=== PATIENT | female | born 1970 | race Caucasian/White ===

== ENCOUNTER → 2019-10-26 14:08 | Outpatient (CLI) | payer OTHER, SELFPAY ==
--- NOTE | ~2019-10-26 | CT_ITS ---
EXAMINATION: CT sinus wo con DATE: 10/26/2019 14:27 INDICATION: Chronic sinusitis TECHNIQUE: Computed tomography (CT) of the paranasal sinuses was performed without intravenous contra st. The dose-length product was 260.54 mGy-cm. Iterative reconstruction technique was employed. COMPARISON: No prior studies for comparison. FINDINGS: There is pansinusitis with air-fluid level in the left maxillary sinus. The ostiomeatal uni ts are occluded by soft tissue. There is rightward nasal septal deviation. Mastoids are pneumatized. IMPRESSION: 1. Miramontes sinusitis, likely chronic. 2: Rightward nasal septal deviation. Reviewed, dictated and finalized at location A.
== END ==
PROVIDERS: Visit Provider Allergy & Immunology
DX: J33.9 Nasal polyp, unspecified (principal); J32.4 Chronic pansinusitis; J34.2 Deviated nasal septum
CPT/HCPCS: 70486

== ENCOUNTER → 2021-09-18 15:33 | Outpatient (CLI) | payer BC, SELFPAY ==
--- NOTE | ~2021-09-18 | MM_ITS ---
EXAMINATION: MM scrn beatris implant BI w sj HISTORY: Screening mammogram TECHNIQUE: Craniocaudal and mediolateral oblique 3-D tomosynthesis images with implant displacement a nd synthetic 2-D images were generated. Craniocaudal and mediolateral oblique views of the breasts wi thout implant displacement were obtained using full field digital mammography. CAD analysis was submi tted and interpreted. COMPARISON: 09/26/2010 BREAST PARENCHYMAL COMPOSITION: The breasts are heterogeneously dense, which may obscure small masses . FINDINGS: RIGHT BREAST: There is no evidence of suspicious mass, calcification, or architectural distortion to suggest malignancy. There has been no significant interval change. LEFT BREAST: An asymmetry is present in the anterior third of the slightly outer breast on the implan t displaced craniocaudal view. IMPRESSION: 1. Left breast asymmetry. 2. Additional mammographic views and possible breast ultrasound are recommended. BI-RADS Category 0: Incomplete: Needs additional imaging evaluation. Reviewed, dictated and finalized at location A. MAKER CUSTOM IMPRESSION: 1. Left breast asymmetry. 2. Additional mammographic views and possible breast ultrasound are recommended . BI-RADS Category 0: Incomplete: Needs additional imaging evaluation.
== END ==
PROVIDERS: Visit Provider Family Medicine
DX: Z12.31 Encounter for screening mammogram for malignant neoplasm of breast (principal); R92.8 Other abnormal and inconclusive findings on diagnostic imaging of breast
CPT/HCPCS: 77063; 77067

== ENCOUNTER → 2021-10-01 09:16 | Outpatient (CLI) | payer BC, SELFPAY ==
--- NOTE | ~2021-10-01 | MM_ITS ---
EXAMINATION: MM diag beatris implant LT w sj HISTORY: Follow-up left breast asymmetry TECHNIQUE: Additional 3-D tomosynthesis images of the left breast were performed and synthetic 2-D im ages were generated. CAD analysis was submitted and interpreted. COMPARISON: 09/18/2021 BREAST PARENCHYMAL COMPOSITION: The breasts are heterogenously dense, which may obscure small masses. FINDINGS: There are no suspicious masses, calcifications or architectural distortion in the left negrito st to suggest malignancy. IMPRESSION: 1. No mammographic evidence for malignancy in the left breast. 2. Routine yearly screening mammogram and regular clinical breast examination are recommended. BI-RADS Category 1: Negative Reviewed, dictated and finalized at location A. CONTROL ENGINEER IMPRESSION: 1. No mammographic evidence for malignancy in the left breast. 2. Routine yearly screening mammogram and regular clinical breast examination a re recommended. BI-RADS Category 1: Negative
== END ==
PROVIDERS: PCP Family Medicine; Visit Provider Family Medicine
DX: R92.8 Other abnormal and inconclusive findings on diagnostic imaging of breast (principal)
CPT/HCPCS: 77061; 77065; G0279

== ENCOUNTER → 2022-03-20 08:00 | Outpatient (CLI) | payer BC, SELFPAY ==
--- NOTE | ~2022-03-20 | US_ITS ---
EXAMINATION: US abdomen complete DATE: 03/20/2022 08:51 INDICATION: Right upper quadrant abdominal pain TECHNIQUE: Multiple grayscale and Doppler ultrasound images of the abdomen were obtained. COMPARISON: None FINDINGS: Normal spleen measuring 9.2 cm in maximal length. There is normal renal contour and echogenicity bila terally. The right kidney measures 11.0 x 3.9 x 4.8 cm and the left 10.4 x 5.4 x 4.4 cm. There are n o focal renal lesions identified. There is no hydronephrosis. The visualized proximal to mid abdomin al aorta is normal. The visualized proximal inferior vena cava is normal. Liver has normal echogenici ty and contour, with a smooth surface. No liver lesion identified. No intrahepatic biliary duct dilat ion suspected. Portal venous flow was seen in the hepatopetal, normal direction and has normal Dopple r waveform. The gallbladder is normal in appearance. There is no cholelithiasis. The common bile nettie t measures 4-5 mm, which is normal. Sonographic Umana sign was reported as negative by the sonograph er. IMPRESSION: 1. Normal abdominal ultrasound. Reviewed, dictated and finalized at location A.
== END ==
LOC: EXPGOSHRAD 07:57 → EXPGOSH 08:10 → EXPGOSHRAD 08:11
PROVIDERS: Visit Provider Nurse Practitioner Family
DX: R10.11 Right upper quadrant pain (principal)
CPT/HCPCS: 76700

== ENCOUNTER → 2023-10-08 10:24 | Outpatient (CLI) | payer BC, SELFPAY ==
--- NOTE | ~2023-10-08 | XR_ITS ---
EXAMINATION: XR cervical spine min 6V DATE: 10/08/2023 10:42 INDICATION: Neck pain. Finger numbness. TECHNIQUE: 5 views of cervical spine were obtained. COMPARISON: None. FINDINGS: There is 4 degrees dextrocurvature of cervical spine. Vertebral body heights are normal. Th ere is mildly decreased disc height at C6-C7. There is multilevel mild facet joint osteoarthritis. No neural foraminal stenosis or central canal stenosis. No prevertebral soft tissue swelling. IMPRESSION: 1. Mild cervical spondylosis. Reviewed, dictated and finalized at location E. S SUPERINTENDENT
== END ==
DX: M47.22 Other spondylosis with radiculopathy, cervical region (principal)
CPT/HCPCS: 72052